=== PATIENT | female | born 1975 | race Caucasian/White ===

== ENCOUNTER 2020-05-21 16:52 | Emergency (ER) | payer MEDICARE, MEDICAID, SELFPAY ==
--- NOTE | ~2020-05-21 | US_ITS ---
EXAMINATION: ULTRASOUND PELVIC, COMPLETE CLINICAL INFORMATION: . Vaginal bleeding. Beta-hCG 9448 COMPARISON: None. TECHNIQUE: Transvaginal: Used to better visualize pelvic structures Transabdominal: Not adequate for visualization Spectral Doppler and color Doppler exam was utilized. LMP: Mid March FINDINGS: UTERUS: There is a single intrauterine gestational sac. There is no pole or yolk sac. Mean gestational sac diameter measures 0.85 cm. This correlates to dating of 5 weeks 3 days. Uterus measures 9.9 x 6.2 x 6.2 cm. There are uterine fibroids present.; 1. Subserosal fundal 1.9 x 1.7 x 1.5 cm 2. Left side of uterus myometrial 1.7 x 1.2 x 1.5 cm 3. Myometrial mid body 0.6 x 0.4 x 0.6 cm ADNEXA: Right adnexa: Ovarian vascularity:Doppler demonstrates both arterial and venous vascular flow in the right ovary. No evidence of ovarian torsion. Right Ovary: 2.3 x 1.4 x 2.2 cm Left adnexa: Left ovary not visualized. Cul-de-sac: No Fluid US/US OB <= 14 weeks fetus IMPRESSION: 1. Single intrauterine gestational sac. Mean gestational sac to 0.8 cm. This correlates to dating of 5 weeks 3 days. Neither the yolk sac or pole is visualized. Consider follow-up ultrasound in 2-3 weeks. 2. Uterine fibroid.
--- NOTE | ~2020-05-21 | US_ITS ---
EXAMINATION: ULTRASOUND PELVIC, COMPLETE CLINICAL INFORMATION: . Vaginal bleeding. Beta-hCG 9448 COMPARISON: None. TECHNIQUE: Transvaginal: Used to better visualize pelvic structures Transabdominal: Not adequate for visualization Spectral Doppler and color Doppler exam was utilized. LMP: Mid March FINDINGS: UTERUS: There is a single intrauterine gestational sac. There is no pole or yolk sac. Mean gestational sac diameter measures 0.85 cm. This correlates to dating of 5 weeks 3 days. Uterus measures 9.9 x 6.2 x 6.2 cm. There are uterine fibroids present.; 1. Subserosal fundal 1.9 x 1.7 x 1.5 cm 2. Left side of uterus myometrial 1.7 x 1.2 x 1.5 cm 3. Myometrial mid body 0.6 x 0.4 x 0.6 cm ADNEXA: Right adnexa: Ovarian vascularity:Doppler demonstrates both arterial and venous vascular flow in the right ovary. No evidence of ovarian torsion. Right Ovary: 2.3 x 1.4 x 2.2 cm Left adnexa: Left ovary not visualized. Cul-de-sac: No Fluid US/US OB transvaginal IMPRESSION: 1. Single intrauterine gestational sac. Mean gestational sac to 0.8 cm. This correlates to dating of 5 weeks 3 days. Neither the yolk sac or pole is visualized. Consider follow-up ultrasound in 2-3 weeks. 2. Uterine fibroid.
[2020-05-21 19:13] VITALS: BP 133/84; PULSE 81; RESP 16; O2SAT 100; BMI 35.4
[2020-05-21 20:03] VITALS: BP 129/80; PULSE 74; RESP 18; O2SAT 98
--- NOTE | 2020-05-21 20:14 | ED.PREGNANCY ---
HPI - General Chief complaint: Vaginal Bleeding Stated complaint: Vaginal Bleeding/ + test Time Seen by Provider: 05/21/20 19:44 Source: patient Mode of arrival: ambulatory Limitations: no limitations History of Present Illness HPI Narrative: Patient is a at unknown early gestational age. Patient comes to emergency room complaining of vaginal bleeding. Patient states that approximately 5 days ago she took a home test which was positive. This morning, patient started having lower abdominal cramping, and pinkish to bloody discharge. 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 Patient complaining of nausea, no vomiting or diarrhea . Related Data Previous Rx's Medication Instructions Recorded clotrimazole 1 appful VAGINAL BEDTIME 3 Days g 05/21/20 Allergies Allergy/AdvReac Type Severity Reaction Status Date / Time No Known Allergies Allergy Verified 05/21/20 19:12 [No Known Allergies*] Review of Systems Review of Systems: Constitutional : No Weight loss, No Fever, No Chills, No Night Sweats, No Fatigue, No Malaise ENT/Mouth : No Hearing loss, No Ear Pain, No Nasal Congestion, No Sinus Pain, No Hoarseness, No sore throat, No Rhinorrhea, No Swallowing Difficulty Eyes: No Eye Pain, No Swelling, No Redness, No Foreign Body, No Discharge, No Vision Changes Cardiovascular : No Chest Pain, No SOB, No Dyspnea on Exertion, No Orthopnea, No Edema, No Palpitations Respiratory : No Cough, No Sputum, No Wheezing, No Smoke Exposure, No Dyspnea Gastrointestinal : Complaining of Nausea, No Vomiting, No Diarrhea, No Constipation, complaining of suprapubic cramping, No Hematochezia, No Melena Genitourinary : Complaining of pinkish to bloody vaginal discharge, No Dysuria, No Urinary Frequency, No Hematuria, No Urinary Incontinence, No Urgency, No Flank Pain, No Urinary Flow Changes, No Hesitancy Musculoskeletal : No joint pain, No Myalgias, No Joint Swelling Skin : No Skin Lesions, No rash Neuro : No Weakness, No Numbness, No Paresthesias, No Loss of Consciousness, No Dizziness, No Headache Psych : No Anxiety/Panic, No Depression, No SI/HI/AH/VH, No Social Issues, Heme/Lymph: No Bruising, No Bleeding,No Lymphadenopathy Endocrine : No Polyuria, No Polydipsia, No Temperature Intolerance [facility] Social History Social History Alcohol intake: never Smoking Status: Never smoker Use of substances other than those prescribed or required for medical reasons: No Advance Directives: No Advance Directives Information Provided: Yes Physical Exam Vital Signs: Vital Signs: Last Vital Signs Pulse 74 05/21/20 20:03 Resp 18 05/21/20 20:03 BP 129/80 05/21/20 20:03 Pulse Ox 98 05/21/20 20:03 Body Mass Index 35.4 Appearance: Alert. Oriented X3. No acute distress. Eyes: Pupils equal, round and reactive to light. ENT: Pharynx normal. Neck: Normal inspection. Neck supple. No lymph nodes noted. No crepitus CVS: Normal heart rate and rhythm. Pulses normal. Normal S1 and S2 Respiratory: No respiratory distress. Breath sounds normal. No Wheezing. No rales Abdomen: Soft and nontender. No rigidity. No distention. good BS x4 : Cervical os is closed, patient has copious amount of candidiasis Skin: Skin warm and dry. Normal skin color. Normal skin turgor. Extremities: No lower extremity edema. No lower extremity edema. No Lacerations. No Rash Neuro: Oriented X 3. No motor deficit. No sensory deficit. Moving all extermities. No slurred speech. Course Course Course Narrative: I discussed the ultrasound with the patient, at this time a pole is not visualized. Patient will need a repeat ultrasound in 2-3 weeks. MDM - OB/Uterine Contractions Lab Data Result diagrams: 05/21/20 20:57 05/21/20 20:57 Labs: Lab Results 05/21/20 05/21/20 05/21/20 Range/Units 20:57 20:57 20:57 WBC 5.8 (4.8-10.8) X10*3/uL RBC 4.52 (4.20-5.50) X10*6/uL Hgb 11.4 L (12.0-16.0) g/dl Hct 36.3 L (37-47) % MCV 80.3 (80-98) fL MCH 25.2 L (27.0-33.0) pg MCHC 31.4 (31.0-35.0) g/dl RDW 21.8 H (11.0-16.0) % Plt Count 270 (160-400) X10*3/uL MPV 11.0 (9.4-12.3) fL Immature Gran % (Auto) 0.2 (0.0-0.4) % Neut % (Auto) 63.0 (45-73) % Lymph % (Auto) 29.1 (20-40) % [place] % (Auto) 5.4 (2-11) % Eos % (Auto) 2.1 (0-4) % Baso % (Auto) 0.2 (0-2) % Lymph # (Auto) 1.7 (1.2-4.9) X10*3/uL [place] # (Auto) 0.3 (0.1-1.2) X10*3/uL Eos # (Auto) 0.1 (0.0-0.4) X10*3/uL Baso # (Auto) 0.0 (0.0-0.2) X10*3/uL Abs Immat Gran (auto) 0.01 (0.00-0.03) X10*3/uL Absolute Neuts (auto) 3.6 (2.0-8.3) X10*3/uL Absolute Nucleated RBC 0.000 (0.0-0.012) X10*3/uL Nucleated RBC % (auto) 0.0 (0.0-0.2) /100WBC Sodium 136 (135-145) mmol/L Potassium 3.8 (3.3-5.1) mmol/L Chloride 107 (96-108) mmol/L Carbon Dioxide 20 L (22-29) mmol/L Anion Gap 13 (12-20) BUN 8 L (9-16) mg/dL Creatinine 0.69 (0.5-1.4) mg/dL Estim Creat Clear Calc 109.4 Estimated GFR > 60 Random Glucose 86 (60-115) mg/dL Calcium 8.6 (8.4-10.2) mg/dL Total Bilirubin 0.5 (0.0-1.0) mg/dL Direct Bilirubin 0.2 (0.0-0.5) mg/dL AST 17 (5-31) U/L ALT 18 (0-31) U/L Alkaline Phosphatase 61 (39-117) U/L Total Protein 6.7 (6.5-8.0) g/dL Albumin 4.2 (3.5-5.0) g/dL Beta HCG, Quant 9448 mIU/mL Urine Color YELLOW Urine Appearance CLEAR Urine pH 6.0 (5.0-8.0) Ur Specific [place] >= 1.030 H (1.005-1.025) Urine Protein NEG (NEG-TRACE) MG/DL Urine Glucose (UA) NEG (NEG) MG/DL Urine Ketones NEG (NEG) MG/DL Urine Blood TRACE (NEG) Urine Nitrite NEG (NEG) Ur Leukocyte Esterase NEG (NEG) Urine RBC 0-2 (0) /HPF Urine WBC 0 (0-4) /HPF Ur Squamous Epith Cells 1+ /LPF Urine Bacteria 1+ /LPF Urine Mucus 1+ /LPF Urine Test (NEGATIVE) 05/21/20 Range/Units 20:57 WBC (4.8-10.8) X10*3/uL RBC (4.20-5.50) X10*6/uL Hgb (12.0-16.0) g/dl Hct (37-47) % MCV (80-98) fL MCH (27.0-33.0) pg MCHC (31.0-35.0) g/dl RDW (11.0-16.0) % Plt Count (160-400) X10*3/uL MPV (9.4-12.3) fL Immature Gran % (Auto) (0.0-0.4) % Neut % (Auto) (45-73) % Lymph % (Auto) (20-40) % [place] % (Auto) (2-11) % Eos % (Auto) (0-4) % Baso % (Auto) (0-2) % Lymph # (Auto) (1.2-4.9) X10*3/uL [place] # (Auto) (0.1-1.2) X10*3/uL Eos # (Auto) (0.0-0.4) X10*3/uL Baso # (Auto) (0.0-0.2) X10*3/uL Abs Immat Gran (auto) (0.00-0.03) X10*3/uL Absolute Neuts (auto) (2.0-8.3) X10*3/uL Absolute Nucleated RBC (0.0-0.012) X10*3/uL Nucleated RBC % (auto) (0.0-0.2) /100WBC Sodium (135-145) mmol/L Potassium (3.3-5.1) mmol/L Chloride (96-108) mmol/L Carbon Dioxide (22-29) mmol/L Anion Gap (12-20) BUN (9-16) mg/dL Creatinine (0.5-1.4) mg/dL Estim Creat Clear Calc Estimated GFR Random Glucose (60-115) mg/dL Calcium (8.4-10.2) mg/dL Total Bilirubin (0.0-1.0) mg/dL Direct Bilirubin (0.0-0.5) mg/dL AST (5-31) U/L ALT (0-31) U/L Alkaline Phosphatase (39-117) U/L Total Protein (6.5-8.0) g/dL Albumin (3.5-5.0) g/dL Beta HCG, Quant mIU/mL Urine Color Urine Appearance Urine pH (5.0-8.0) Ur Specific [place] (1.005-1.025) Urine Protein (NEG-TRACE) MG/DL Urine Glucose (UA) (NEG) MG/DL Urine Ketones (NEG) MG/DL Urine Blood (NEG) Urine Nitrite (NEG) Ur Leukocyte Esterase (NEG) Urine RBC (0) /HPF Urine WBC (0-4) /HPF Ur Squamous Epith Cells /LPF Urine Bacteria /LPF Urine Mucus /LPF Urine Test POSITIVE H (NEGATIVE) Imaging Data Ob ultrasound: Radiologist's impression: UTERUS: There is a single intrauterine gestational sac. There is no pole or yolk sac. Mean gestational sac diameter measures 0.85 cm. This correlates to dating of 5 weeks 3 days. Uterus measures 9.9 x 6.2 x 6.2 cm. There are uterine fibroids present.; 1. Subserosal fundal 1.9 x 1.7 x 1.5 cm 2. Left side of uterus myometrial 1.7 x 1.2 x 1.5 cm 3. Myometrial mid body 0.6 x 0.4 x 0.6 cm ADNEXA: Right adnexa: Ovarian vascularity:Doppler demonstrates both arterial and venous vascular flow in the right ovary. No evidence of ovarian torsion. Right Ovary: 2.3 x 1.4 x 2.2 cm Left adnexa: Left ovary not visualized. Cul-de-sac: No Fluid US/US OB <= 14 weeks fetus IMPRESSION: 1. Single intrauterine gestational sac. Mean gestational sac to 0.8 cm. This correlates to dating of 5 weeks 3 days. Neither the yolk sac or pole is visualized. Consider follow-up ultrasound in 2-3 weeks. 2. Uterine fibroid. Discharge Plan Discharge Clinical Impression: Threatened , Candidiasis of vagina during Patient Disposition: Home, Self-Care Instructions: Threatened Miscarriage (ED), Yeast Infection (ED) Additional Instructions: Please follow-up with OBGYN. Please follow-up with your primary care physician tomorrow. If you have any worsening or new symptoms, please return to the emergency room or call 911 Prescriptions: New clotrimazole 2 % cream 1 appful vaginal BEDTIME 3 Days RF: 0 Referrals: John Rios MD [Physician] - 2 days
[2020-05-21 21:13] LABS: MANUAL DIFF FLAG NO
[2020-05-21 21:15] LABS: Glucose Urine UA NEG (NEG); Leukocyte Esterase Urine NEG (NEG); Nitrite Urine NEG (NEG); Specific Gravity - Urine >= 1.030 (1.005-1.025); Urine Blood TRACE (NEG); Urine Ketones NEG (NEG); Urine Protein NEG (NEG-TRACE)
[2020-05-21 21:16] LABS: Appearance Urine CLEAR; Color Urine YELLOW
[2020-05-21 21:17] LABS: Basophils Percent Auto 0.2 % (0-2); Eosinophils Absolute Auto 0.1 X10*3/uL (0.0-0.4); Eosinophils Percent Auto 2.1 % (0-4); Hematocrit 36.3 % (37-47); Hemoglobin 11.4 g/dl (12.0-16.0); Imm Gran Abs Auto 0.01 X10*3/uL (0.00-0.03); Imm Gran Pct Auto 0.2 % (0.0-0.4); Lymphocytes Absolute Auto 1.7 X10*3/uL (1.2-4.9); Lymphocytes Percent Auto 29.1 % (20-40); Mean Corpuscular HGB Conc 31.4 g/dl (31.0-35.0); Mean Corpuscular Hemoglobin 25.2 pg (27.0-33.0); Mean Corpuscular Volume 80.3 fL (80-98); Monocytes Absolute Auto 0.3 X10*3/uL (0.1-1.2); Monocytes Percent Auto 5.4 % (2-11); Neutrophils Absolute Auto 3.6 X10*3/uL (2.0-8.3); Platelet Count 270 X10*3/uL (160-400); Red Blood Count 4.52 X10*6/uL (4.20-5.50); Red Cell Distribution Width 21.8 % (11.0-16.0); UPreg QC Valid YES; Urine Pregnancy POSITIVE (NEGATIVE); White Blood Count 5.8 X10*3/uL (4.8-10.8)
[2020-05-21 21:23] LABS: Bacteria Urine 1+ /LPF; Mucus Urine 1+ /LPF; RBC Urine 0-2 /HPF (0); Squamous Epithelial Cell Urine 1+ /LPF; WBC Urine 0 /HPF (0-4)
[2020-05-21 21:48] LABS: Alanine Aminotransferase 18 U/L (0-31); Albumin Level 4.2 g/dL (3.5-5.0); Alkaline Phosphatase 61 U/L (39-117); Anion Gap 13 (12-20); Aspartate Amino Transferase 17 U/L (5-31); Bilirubin Direct 0.2 mg/dL (0.0-0.5); Bilirubin Total 0.5 mg/dL (0.0-1.0); Blood Urea Nitrogen 8 mg/dL (9-16); Calcium 8.6 mg/dL (8.4-10.2); Carbon Dioxide 20 mmol/L (22-29); Chloride 107 mmol/L (96-108); Creatinine Clr Calc Pharmacy 109.4; Estimated Glomerular Filt Rate > 60; Glucose Random 86 mg/dL (60-115); Potassium 3.8 mmol/L (3.3-5.1); Sodium 136 mmol/L (135-145); Total Protein 6.7 g/dL (6.5-8.0)
[2020-05-21 21:54] LABS: HCG Quantitative 9448 mIU/mL
--- NOTE | 2020-05-21 23:43 | PC.NURSE ---
pt tolerated vaginal exam at bedside with provider.
[2020-05-21 23:48] VITALS: BP 127/83; PULSE 76; RESP 18; O2SAT 100
--- NOTE | 2020-05-21 23:48 | PC.NURSE ---
vaginal prep cancelled due to pt has a yeast infection on examination.
== END 2020-05-21 23:57 | disposition home or self-care (01) ==
PROVIDERS: Emergency Provider Emergency Medicine
DX: O20.0 Threatened abortion (principal); B37.3 Candidiasis of vulva and vagina; O98.811 Other maternal infectious and parasitic diseases complicating pregnancy, first trimester; Z3A.01 Less than 8 weeks gestation of pregnancy
CPT/HCPCS: 36415; 76801; 76817; 80048; 80076; 81001; 81025; 84702; 85025; 99284

== ENCOUNTER 2020-05-23 12:59 | Outpatient (REF) | payer MEDICARE, MEDICAID, SELFPAY ==
[2020-05-23 15:06] LABS: HCG Quantitative 14878 mIU/mL
== END 2020-05-23 13:00 | disposition home or self-care (01) ==
LOC: HO.LAB 12:59
PROVIDERS: Visit Provider Advanced Practice Midwife
DX: O20.0 Threatened abortion (principal)
CPT/HCPCS: 36415; 84702; 86850; 86900; 86901; 99212